=== PATIENT | male | born 1970 | race Caucasian/White ===

== ENCOUNTER 2019-06-18 06:41 | Emergency (ER) | payer BC, OTHER ==
--- NOTE | 2019-06-18 07:22 | EDM.PDOC ---
ED HPI GENERAL MEDICAL PROBLEM - General Chief Complaint: Respiratory Problem Stated Complaint: COVID +/SOB Time Seen by Provider: 06/18/19 07:18 Source of Information: Reports: Patient, RN Notes Reviewed - History of Present Illness INITIAL COMMENTS - FREE TEXT/NARRATIVE: 49-year-old male comes in with cough, difficulty breathing. Unfortunately he did test positive for coronavirus sometime earlier this week. He states his was actually the first to become ill in the family and she is getting better. He started with mild nasal congestion about 8 days ago and symptoms did fairly quickly progress to cough, very severe joint and muscle achiness fever chills and headache. His cough is dry and at times productive. Fever has been more low-grade than high. He states the achiness been the most difficult symptom to deal with. This morning especially he felt more short of breath than he has been in the past. He does have history of getting bronchitis once or twice a year. He is a non-smoker no known specific lung disease and otherwise has been healthy. Generalized Pain Score (Numeric/FACES): 5 - Related Data Allergies Allergy/AdvReac Type Severity Reaction Status Date / Time seasonal Allergy Sneezing Uncoded 06/18/19 06:54 Home Meds: Home Meds Adalimumab [Humira Pen] 40 mg SUBCUT ASDIRECTED 06/18/19 [History] Past Medical History Respiratory History: Reports: Bronchitis, Recurrent, Pneumonia, Recurrent, Other (See Below) Other Respiratory History: COVID-19 Dermatologic History: Reports: Psoriasis Social & Family History - Family History Family Medical History: Noncontributory - Tobacco Use Smoking Status *Q: Former Smoker Years of Tobacco use: 15 Used Tobacco, but Quit: Yes Month/Year Tobacco Last Used: 12/2012 Second Hand Smoke Exposure: No - Caffeine Use Caffeine Use: Reports: Coffee, Energy Drinks, Tea Caffeine Use Comment: energy drinks rarely - Recreational Drug Use Recreational Drug Use: No ED ROS GENERAL - Review of Systems Review Of Systems: See Below Constitutional: Reports: Fever, Chills, Malaise, Fatigue, Decreased Appetite HEENT: Reports: Rhinitis, Sinus Problem, Throat Pain Respiratory: Reports: Shortness of Breath, Wheezing, Cough Cardiovascular: Reports: Chest Pain (with coughing) GI/Abdominal: Denies: Abdominal Pain, Vomiting Musculoskeletal: Denies: Neck Pain, Shoulder Pain Skin: Denies: Rash Neurological: Reports: Dizziness, Headache ED EXAM, GENERAL - Physical Exam Exam: See Below General Appearance: Alert, Mild Distress Eye Exam: Bilateral Eye: PERRL Respiratory/Chest: Respiratory Distress (mild tachypnea). No: Crackles, Rales, Rhonchi, Wheezing Cardiovascular: Regular Rate, Rhythm Extremities: Normal Inspection Neurological: Alert, Oriented, No Motor/Sensory Deficits Skin Exam: Warm, Dry, Normal Color Course - Vital Signs Last Recorded V/S: Last Vital Signs Temp 100.9 F H 06/18/19 06:47 Pulse 81 06/18/19 06:47 Resp 22 H 06/18/19 06:47 BP 139/94 H 06/18/19 06:47 Pulse Ox 98 06/18/19 06:47 - Re-Assessments/Exams Free Text/Narrative Re-Assessment/Exam: 06/18/19 09:07 O2 sats 98% on room air. Visiting with him they fluctuated from 97 to 99%. His lungs are clear to auscultation. X-ray does not show any infiltrate or acute findings. I did speak spent considerable time discussing this with patient, expected course, return precautions. Departure - Departure Time of Disposition: 08:45 Disposition: Home, Self-Care 01 Condition: Fair Clinical Impression: Viral respiratory infection, Bronchitis - Discharge Information Instructions: Coronavirus Information 06/07/19, Viral Respiratory Infection Referrals: PCP,None [Primary Care Provider] - Forms: ED Department Discharge Additional Instructions: Continue to drink plenty of fluids to maintain hydration, Vaporizer or steam as needed. Continue tylenol q 6 to 8 hr until symptoms resolving. Return to ED as needed if symptoms worsening in any way, especially for more severe difficulty breathing. Sepsis Event Note - Evaluation Sepsis Screening Result: No Definite Risk - Focused Exam Vital Signs: Vital Signs Temp Pulse Resp BP Pulse Ox 06/18/19 06:47 100.9 F H 81 22 H 139/94 H 98 Date Exam was Performed: 06/18/19 Time Exam was Performed: 09:01
--- NOTE | 2019-06-18 08:05 | CR ---
Chest: Portable view of the chest was obtained. Comparison: Prior chest x-ray of 05/06/10. Heart size and mediastinum are within normal limits. Lungs are clear with no acute parenchymal change being seen. Bony structures are unremarkable. Impression: 1. Nothing acute is appreciated on portable chest x-ray. Diagnostic code #1 Study was dictated in MDT
== END 2019-06-18 09:24 | disposition home or self-care (01) ==
LOC: JD.ED 06:41
DX: J40 Bronchitis, not specified as acute or chronic (principal); J06.9 Acute upper respiratory infection, unspecified; Z87.891 Personal history of nicotine dependence; Z91.048 Other nonmedicinal substance allergy status
CPT/HCPCS: 71045; 71045-26; 99282; 99284-25

== ENCOUNTER 2019-06-19 10:27 | Emergency (ER) | payer BC, OTHER ==
--- NOTE | 2019-06-19 10:43 | EDM.PDOC ---
ED HPI GENERAL MEDICAL PROBLEM - General Chief Complaint: Respiratory Problem Stated Complaint: COVID +/SOB Time Seen by Provider: 06/19/19 10:33 - History of Present Illness INITIAL COMMENTS - FREE TEXT/NARRATIVE: 49-year-old male with known Covid 19 disease returns with continued shortness of breath. Patient was seen here yesterday had a chest x-ray. And received some assuring. The patient complains that he just has not been able to get any sleep because of the cough. He has some low-grade fevers at home but none here in the emergency department his O2 saturation looks good. His biggest complaint is just not been able to sleep. He is uncomfortable when he coughs feels like his airways are sore. Generalized Pain Score (Numeric/FACES): 4 - Related Data Allergies Allergy/AdvReac Type Severity Reaction Status Date / Time seasonal Allergy Sneezing Uncoded 06/19/19 10:33 Home Meds: Home Meds Adalimumab [Humira Pen] 40 mg SUBCUT ASDIRECTED 06/18/19 [History] Past Medical History Respiratory History: Reports: Bronchitis, Recurrent, Pneumonia, Recurrent, Other (See Below) Other Respiratory History: COVID-19 Dermatologic History: Reports: Psoriasis - Infectious Disease History Infectious Disease History: Reports: Novel Coronavirus Social & Family History - Family History Family Medical History: Noncontributory - Caffeine Use Caffeine Use: Reports: Coffee, Energy Drinks, Tea Caffeine Use Comment: energy drinks rarely ED ROS GENERAL - Review of Systems Review Of Systems: See Below Constitutional: Reports: Fever. Denies: Chills HEENT: Reports: No Symptoms Respiratory: Reports: Shortness of Breath (More discomfort when he coughs than shortness of breath), Cough, Sputum (Minimal) Cardiovascular: Reports: No Symptoms GI/Abdominal: Reports: No Symptoms ED EXAM, GENERAL - Physical Exam Exam: See Below Exam Limited By: No Limitations General Appearance: Alert, No Apparent Distress Eye Exam: Bilateral Eye: Normal Inspection Ears: Normal External Exam, Normal Canal, Hearing Grossly Normal, Normal TMs Nose: Normal Inspection, Normal Mucosa, No Blood Throat/Mouth: Normal Inspection, Normal Lips, Normal Teeth, Normal Gums, Normal Oropharynx, Normal Voice, No Airway Compromise Head: Atraumatic (The same asked me something he can do what I stand and I can certify him for that and though II and symptom-free the recommendation is that you do so 72 hours after you Cinryze are gone well the the test would probably get turned down none), Normocephalic Neck: Normal Inspection, Supple, Non-Tender, Full Range of Motion. No: Lymphadenopathy (L), Lymphadenopathy (R) Respiratory/Chest: No Respiratory Distress, Lungs Clear, Normal Breath Sounds ( Based on the report) Cardiovascular: Normal Peripheral Pulses, Regular Rate, Rhythm, No Edema Course - Vital Signs Last Recorded V/S: Last Vital Signs Temp 37.1 C 06/19/19 10:30 Pulse 79 06/19/19 10:30 Resp 18 06/19/19 10:30 BP 149/98 H 06/19/19 10:30 Pulse Ox 92 L 06/19/19 10:30 - Orders/Labs/Meds Orders: Active Orders 24 hr Category Date Time Status RT Post Treatment Assessment [RC] Click to Edit Care 06/19/19 10:58 Active RT Pre-Treatment Assessment [RC] Click to Edit Care 06/19/19 10:58 Active Meds: Medications Discontinued Medications Generic Name Dose Route Start Last Admin Trade Name Ko PRN Reason Stop Dose Admin Albuterol 0 gm 06/19/19 10:57 06/19/19 11:32 Proventil Hfa INH 06/19/19 10:58 2 puff ONETIME ONE Administration - Re-Assessments/Exams Free Text/Narrative Re-Assessment/Exam: 06/19/19 12:43 Was started on albuterol MDI he coughed initially after he used it, but thinks he might be little bit better. Will discharge home. He did discuss his home O2 saturation and he has been pretty good here but at home he is running 88 to 92% at times usually much better than this and this is usually when he is trying to sleep lie down. Advised that he sleep in a recliner and see if this helps and use the albuterol 2 puffs every 3-4 hours while awake. Departure - Departure Time of Disposition: 12:44 Disposition: Home, Self-Care 01 Clinical Impression: Infection due to 2019 novel coronavirus - Discharge Information Referrals: PCP,None [Primary Care Provider] - Forms: ED Department Discharge Additional Instructions: Return to the emergency room with any questions problems or worsening symptoms. Use the albuterol inhaler 2 puffs every 3-4 hours while awake. Try sleeping in a recliner and see if this helps. Otherwise, stay home until you are symptom-free for 3 full days. Free of symptoms means no fever and free of cough or other symptoms. Sepsis Event Note - Evaluation Sepsis Screening Result: No Definite Risk - Focused Exam Vital Signs: Vital Signs Temp Pulse Resp BP Pulse Ox 06/19/19 10:30 37.1 C 79 18 149/98 H 92 L Date Exam was Performed: 06/19/19 Time Exam was Performed: 12:43 - My Orders Last 24 Hours: My Active Orders 06/19/19 10:58 RT Post Treatment Assessment [RC] Click to Edit RT Pre-Treatment Assessment [RC] Click to Edit - Assessment/Plan Last 24 Hours: My Active Orders 06/19/19 10:58 RT Post Treatment Assessment [RC] Click to Edit RT Pre-Treatment Assessment [RC] Click to Edit
[2019-06-19] MEDS ORDERED: Albuterol 6.7 GM Inhaler INH ONE (10:57)
== END 2019-06-19 13:05 | disposition home or self-care (01) ==
LOC: JD.ED 10:27
DX: B97.29 Other coronavirus as the cause of diseases classified elsewhere (principal)
CPT/HCPCS: 99284; A9270; 99283

== ENCOUNTER 2019-06-22 16:41 | Emergency (ER) | payer BC, OTHER ==
--- NOTE | 2019-06-22 18:16 | EDM.PDOC ---
ED HPI GENERAL MEDICAL PROBLEM - General Chief Complaint: Respiratory Problem Stated Complaint: SOB/COVID + Time Seen by Provider: 06/22/19 17:07 Source of Information: Reports: Patient History Limitations: Reports: No Limitations - History of Present Illness INITIAL COMMENTS - FREE TEXT/NARRATIVE: Mr. Lang is a very pleasant 49-year-old man with a past medical history significant for psoriasis, treated with Humira, and diabetes that resolved after he lost weight, who states that he developed dyspnea and a nonproductive cough on or about 06/12/2019. He was tested and found positive for COVID-19 on 06/14/2023 or 06/15/2019. Medical records indicate that he was seen in this ED on 06/18/2019, for continued dyspnea and cough. He reported at that time that his symptoms had in fact been getting better. His oxygen saturation was found to be 98% on room air , and his lungs were clear to auscultation bilaterally. He had a slight fever of 100.9 degrees. A portable chest x-ray was read as negative. He was discharged home. Medical records further indicate that the patient returned to the ED the following day, on 06/19/2019, still short of breath with a nonproductive cough. He reported that he could not sleep due to his cough. He was afebrile, but his oxygen saturation was noted to be 92% on room air. He was prescribed albuterol and again discharged home. The patient now returns to the ED stating that he has been dyspneic on and off since 02:00 this morning, and that he still cannot sleep, therefore he is feeling tired and worn out. He reports that he had watery diarrhea yesterday, 06/21/2019, but that it resolved after he took Imodium. He states that he took an albuterol treatment at noon, and Tylenol at 16:00. Here in the ED, the patient is found to be somewhat tachypneic at 28 RPM, and febrile at 101.5 degrees. He is otherwise hemodynamically stable, saturating 95 % on room air. The patient does not have a PCP. 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 Back Pain Score (Numeric/FACES): 8 - Related Data Allergies Allergy/AdvReac Type Severity Reaction Status Date / Time seasonal Allergy Sneezing Uncoded 06/22/19 16:56 Home Meds: Home Meds Adalimumab [Humira Pen] 40 mg SUBCUT ASDIRECTED 06/18/19 [History] Acetaminophen [Tylenol Arthritis Pain] 1 tab PO 6XDAY PRN 06/22/19 [History] Albuterol Sulfate [Albuterol Sulfate Hfa] 2 puff INH 6XDAY PRN 06/22/19 [History ] Past Medical History Endocrine/Metabolic History: Reports: Diabetes, Type II (resolved after lost weight) Dermatologic History: Reports: Psoriasis - Infectious Disease History Infectious Disease History: Reports: Novel Coronavirus (dx'd 06/14/2019 or 2019) - Past Surgical History HEENT Surgical History: Reports: Cataract Surgery (bilateral) Musculoskeletal Surgical History: Reports: Other (See Below) (Left knee - arthroscopic x 1, open x 1) Social & Family History - Family History Family Medical History: Noncontributory - Tobacco Use Smoking Status *Q: Former Smoker Tobacco Use Within Last Twelve Months: Smokeless Tobacco (Quit chewing 1/2 can/ day Dec 2012) Years of Tobacco use: 21 Packs/Tins Daily: 0.5 Month/Year Tobacco Last Used: Quit Dec 2012 - Caffeine Use Caffeine Use: Reports: Coffee Caffeine Use Comment: energy drinks rarely - Alcohol Use Alcohol Use History: Yes Alcohol Use Frequency: Rarely - Recreational Drug Use Recreational Drug Use: No - Living Situation & Occupation Living situation: Reports: , with Spouse, with Family (2 daughters + one of their boyfriends) Occupation: Employed (ethanol maintenance mechanic) ED ROS GENERAL - Review of Systems Review Of Systems: Comprehensive ROS is negative, except as noted in HPI. ED EXAM, GENERAL - Physical Exam Exam: See Below Exam Limited By: No Limitations General Appearance: Alert, WD/WN, Anxious (tachypneic) Eye Exam: Bilateral Eye: EOMI, Normal Inspection Ears: Normal External Exam, Hearing Grossly Normal Nose: Normal Inspection Throat/Mouth: Normal Inspection, Normal Lips, Normal Voice, No Airway Compromise Head: Atraumatic, Normocephalic Neck: Normal Inspection, Full Range of Motion Respiratory/Chest: No Respiratory Distress, Lungs Clear, Normal Breath Sounds, No Accessory Muscle Use. No: Decreased Breath Sounds, Crackles, Rhonchi, Wheezing, Stridor, Prolonged Expiration Cardiovascular: Normal Peripheral Pulses, Regular Rate, Rhythm, No Edema, No Gallop, No JVD, No Murmur, No Rub Peripheral Pulses: 4+: Radial (L), Radial (R) GI/Abdominal: Normal Bowel Sounds, Soft, Non-Tender, No Organomegaly, No Distention, No Abnormal Bruit, No Mass (Male) Exam: Deferred Rectal (Males) Exam: Deferred Back Exam: Normal Inspection, Full Range of Motion, NT Extremities: Normal Inspection, Normal Range of Motion, No Pedal Edema, Normal Capillary Refill Neurological: Alert, Oriented, Normal Cognition, No Motor/Sensory Deficits Psychiatric: Normal Affect Skin Exam: Warm, Dry, Intact, Normal Color, No Rash ED LACERATION PROCEDURES - Laceration/Wound Repair Midline Head # of Sutures: 5 Course - Vital Signs Last Recorded V/S: Last Vital Signs Temp 38.6 C H 06/22/19 16:43 Pulse 99 06/22/19 16:43 Resp 19 06/22/19 21:08 BP 137/85 06/22/19 21:08 Pulse Ox 95 06/22/19 21:08 Orthostatic Blood Pressure [ 132/88 Standing] Orthostatic Blood Pressure [ 143/79 Supine] - Orders/Labs/Meds Orders: Active Orders 24 hr Category Date Time Status Vaccines to be Administered [RC] PER UNIT ROUTINE Care 06/22/19 20:29 Active Labs: Laboratory Tests 06/22/19 06/22/19 Range/Units 18:32 18:32 WBC 5.96 (4.23-9.07) K/mm3 RBC 5.28 (4.63-6.08) M/mm3 Hgb 14.9 (13.7-17.5) gm/dl Hct 42.4 (40.1-51.0) % MCV 80.3 (79.0-92.2) fl MCH 28.2 (25.7-32.2) pg MCHC 35.1 (32.2-35.5) g/dl RDW Std Deviation 36.3 (35.1-43.9) fL Plt Count 163 (163-337) K/mm3 MPV 10.2 (9.4-12.3) fl Neutrophils % (Manual) 73 H (40-60) % Band Neutrophils % 0 (0-10) % Lymphocytes % (Manual) 22 (20-40) % Atypical Lymphs % 0 % Monocytes % (Manual) 5 (2-10) % Eosinophils % (Manual) 0 L (0.8-7.0) % Basophils % (Manual) 0 L (0.2-1.2) Platelet Estimate Adequate RBC Morph Comment Normal Sodium 132 L (136-145) mEq/L Potassium 4.1 (3.5-5.1) mEq/L Chloride 97 L (98-107) mEq/L Carbon Dioxide 24 (21-32) mEq/L Anion Gap 15.1 H (5-15) BUN 11 (7-18) mg/dL Creatinine 1.3 (0.7-1.3) mg/dL Est Cr Clr Drug Dosing 78.53 mL/min Estimated GFR (MDRD) 59 (>60) mL/min BUN/Creatinine Ratio 8.5 L (14-18) Glucose 281 H (74-106) mg/dL Calcium 8.5 (8.5-10.1) mg/dL Magnesium 1.8 (1.8-2.4) mg/dl Total Bilirubin 0.7 (0.2-1.0) mg/dL AST 40 H (15-37) U/L ALT 71 H (16-63) U/L Alkaline Phosphatase 100 (46-116) U/L Total Protein 6.9 (6.4-8.2) g/dl Albumin 3.1 L (3.4-5.0) g/dl Globulin 3.8 gm/dL Albumin/Globulin Ratio 0.8 L (1-2) - Re-Assessments/Exams Free Text/Narrative Re-Assessment/Exam: 06/22/19 18:12 As it is now 7 to 8 days after he was diagnosed with COVID-19, we would expect the patient's symptoms to be generally improving, however, he continues to complain of dyspnea, along with generalized fatigue and watery diarrhea yesterday, now resolved after he took loperamide. Here in the ED, the patient does have a fever of 101.5 degrees, although his oxygen saturation is 95% on room air. He appears to be anxious and tachypneic. For today's purposes, I have ordered some blood work, positional blood pressure checks, and a chest x- ray. 06/22/19 18:35 The patient is not orthostatic. 06/22/19 19:43 Two-view chest radiograph reviewed. The cardiac silhouette is within normal limits. No pulmonary vascular congestion. No pleural effusions. There are mild bilateral hazy infiltrates, most prominently in the right upper lobe. No pneumothorax. Formal read per the Radiologist pending. The patient CBC is unremarkable. His WBC count is normal at 5.96, with 0% bandemia, 73% neutrophils and 22% lymphocytes. His CMP is remarkable for a sodium mildly depressed at 132 with a chloride of 97 , and anion gap slightly elevated at 15.1, but with a bicarbonate normal at 24. His blood glucose is elevated at 281. His AST/ALT are slightly elevated at 40 /71, with the remainder of his CMP being unremarkable. His magnesium level is within normal limits at 1.8. The patient's ANC /ALC ratio is 3.3. Being under 3.5, this is not indicative of imminent need for intubation, however, the patient will need to be monitored. If the patient can acquire a home pulse oximeter, he can remain at home, which would be best for all concerned, however, if he cannot acquire a home pulse oximeter, he may need to be hospitalized. 06/22/19 20:03 The above was discussed with the patient. He has a pulse oximeter at home already. Although his chest x-ray shows bilateral infiltrates, his oxygen saturation today is actually higher than it was on 06/19/2019, therefore the patient may actually be improving despite his continued dyspnea. I will therefore discharge him home with the recommendation that he return if his oxygen saturation gets down to 89 to 88%. In the meantime, I am recommending that he discontinue the albuterol, as it has not been shown to be of any benefit with this illness, and he is not wheezing. I am also recommending that he discontinue Tylenol, as fever is a very important part of the treatment of this illness. The patient asked about a cough medicine. He is currently taking Delsym, which he states may be helping. I offered to prescribe some codeine with promethazine, noting that I cannot guarantee that it would help, but he declined. Departure - Departure Time of Disposition: 20:07 Disposition: Home, Self-Care 01 Condition: Good Clinical Impression: COVID-19, Hyperglycemia due to type 2 diabetes mellitus - Discharge Information *PRESCRIPTION DRUG MONITORING PROGRAM REVIEWED*: Not Applicable *COPY OF PRESCRIPTION DRUG MONITORING REPORT IN PATIENT AURELIO: Not Applicable Instructions: Hyperglycemia, [id number], Coronavirus Information 06/07/19 Referrals: Lina Blackwood NP [Ordering Only Provider] - Forms: ED Department Discharge Additional Instructions: You were seen in the emergency room for continued shortness of breath and cough after being diagnosed with COVID-19. Work-up in the ER included blood work, positional blood pressure checks, and a chest x-ray. Your blood work was remarkable for a blood glucose elevated at 281, indicating diabetes. We recommend that you follow-up with Lina Blackwood NP, or one of the other providers in the clinic, once your COVID-19 disease has resolved. Your chest x-ray found bilateral hazy infiltrates, which is consistent with COVID-19, however, your oxygen saturation is 95% on room air, up from 92% on . Hospitalization is not indicated. Overall, it appears that your COVID-19 is improving. We recommend that you discontinue albuterol, as it does not help with this illness, and will only make your heart race. We also recommend that you do not treat your fever, as fever is a very important part of your immune system's efforts to fight this illness. We recommend that you check your oxygen saturation 2 or 3 times a day. If it consistently gets down to about 89 to 88%, you need to return to the ER for reevaluation. Sepsis Event Note - Evaluation Sepsis Screening Result: Possible Sepsis Risk - Focused Exam Date Exam was Performed: 06/23/19 Time Exam was Performed: 20:47 - My Orders Last 24 Hours: My Active Orders 06/22/19 20:29 Vaccines to be Administered [RC] PER UNIT ROUTINE - Assessment/Plan Last 24 Hours: My Active Orders 06/22/19 20:29 Vaccines to be Administered [RC] PER UNIT ROUTINE
--- NOTE | 2019-06-22 19:57 | CR ---
Chest: PA and lateral views of the chest were obtained. Comparison: Prior chest x-ray of 06/18/19. Diffuse increased lung markings are seen bilaterally. Areas of atelectasis are also noted within the left base. Heart size and mediastinum are normal. Bony structures show nothing acute. Impression: 1. Diffuse increased lung markings on both sides. Findings have the appearance of fairly severe bronchitis either bacterial or viral in etiology. 2. Areas of left-sided nasal are atelectasis. Note: Findings are an interval change from previous study. Diagnostic code #3 Study was dictated in MDT
[2019-06-22] MEDS ORDERED: Diphtheria,Pertussis(Acell),Tetanus Vaccine 0.5 ML Syringe IM ONE (20:29)
== END 2019-06-22 21:08 | disposition home or self-care (01) ==
LOC: JD.ED 16:41
DX: B97.29 Other coronavirus as the cause of diseases classified elsewhere (principal); E11.65 Type 2 diabetes mellitus with hyperglycemia; Z87.891 Personal history of nicotine dependence; Z91.048 Other nonmedicinal substance allergy status
CPT/HCPCS: 36415; 71046; 71046-26; 80053; 83735; 85007; 85027; 99282; 99285-25